=== PATIENT | male | born 1965 | race Caucasian/White ===

== ENCOUNTER 2019-03-25 04:17 | Emergency (ER) | payer MEDICAID, MEDICARE ==
[~2019-03-25] VITALS: Ht 188 cm; Wt 91.6 kg
[2019-03-25] MEDS ORDERED: KETOROLAC 30 MG/1 ML ONE (04:53)
[2019-03-25] MEDS ORDERED: KETOROLAC 30 MG/1 ML IM ONE (05:00)
[2019-03-25 05:08] LABS: RAPID INFLUENZA A Negative (Negative); RAPID INFLUENZA B Negative (Negative)
[2019-03-25 05:42] VITALS: BP 134/85
== END 2019-03-25 05:45 | disposition home or self-care (01) ==
LOC: ED 05:11
DX: B34.9 Viral infection, unspecified (principal); F12.10 Cannabis abuse, uncomplicated; Z72.89 Other problems related to lifestyle; Z90.89 Acquired absence of other organs
CPT/HCPCS: 71046; 87400; 96372; 99284; J1885

== ENCOUNTER 2019-03-27 03:09 | Emergency (ER) | payer MEDICAID ==
[~2019-03-27] VITALS: Ht 188 cm; Wt 92.0 kg
[2019-03-27 03:10] VITALS: BP 123/68
== END 2019-03-27 04:01 | disposition home or self-care (01) ==
LOC: ED 03:55
DX: F10.120 Alcohol abuse with intoxication, uncomplicated (principal); F17.210 Nicotine dependence, cigarettes, uncomplicated; F19.90 Other psychoactive substance use, unspecified, uncomplicated; Z72.9 Problem related to lifestyle, unspecified; Y90.9 Presence of alcohol in blood, level not specified
CPT/HCPCS: 99281